=== PATIENT | female | born 2000 | race Caucasian/White ===

== ENCOUNTER 2022-11-01 13:20 | Outpatient (CLI) | payer BC, SELFPAY | END 2022-11-01 13:21 | disposition home or self-care (01) | LOC: ANHGOSHLAB 13:21 | PROVIDERS: PCP Pediatrics; Visit Provider Otolaryngology | DX: E03.9 Hypothyroidism, unspecified (principal) | CPT/HCPCS: 36415; 84443 ==

== ENCOUNTER 2022-12-05 12:56 | Emergency (ER) | payer BC, SELFPAY ==
[2022-12-05 13:05] VITALS: BP 127/98; PULSE 101; RESP 16; TEMP 36.8; O2SAT 99
--- NOTE | 2022-12-05 13:08 | ED.SKABFB ---
HPI - Skin/Abscess/Foreign Bdy General Chief complaint: Wound/Laceration Stated complaint: BURN TO NECK Time Seen by Provider: 12/05/22 13:08 Source: patient and RN notes reviewed History of Present Illness HPI narrative: Patient is a 22-year-old female who presents to urgent care with complaints of a burn to the right side of her neck. Patient states that she burned it with a curling iron last night. Patient has been using [id number] a and D ointment. Patient is requesting a prescription for Silvadene. No other acute complaints. No acute distress noted. Patient aware of the plan of care. Some parts of this dictation were generated by voice recognition software and may contain typographical and/or grammatical inaccuracies. Related Data Allergies Allergy/AdvReac Type Severity Reaction Status Date / Time No Known Allergies Allergy Verified 12/05/22 13:04 Review of Systems Review of Systems: CONSTITUTIONAL: DENIES FEVER, CHILLS, OR SWEATS. EYES: DENIES VISUAL CHANGES, REDNESS, OR DISCHARGE. ENT: DENIES RHINORRHEA, CONGESTION, SORE THROAT, OR OTALGIA. CARDIOVASCULAR: DENIES CHEST PAIN, PALPITATIONS, OR EDEMA. RESPIRATORY: DENIES COUGH OR DYSPNEA. GASTROINTESTINAL: DENIES ABDOMINAL PAIN, NAUSEA, VOMITING, OR DIARRHEA. GENITOURINARY: DENIES DYSURIA OR HEMATURIA. SKIN: Reports of a burn to the right side of her neck MUSCULOSKELETAL: DENIES BACK PAIN, JOINT PAIN, OR MYALGIA. NEUROLOGIC: DENIES HEADACHE, NUMBNESS, OR WEAKNESS. ALL OTHER SYSTEMS REVIEWED ARE NEGATIVE, EXCEPT DOCUMENTED IN HPI. [facility] Past Medical History Medical History Pelvic pain Surgical History Surgical History S/P ACL surgery Family History Family History Grandparent Family history of malignant neoplasm of breast Father Family history of lupus erythematosus Social History Social History (Updated 11/01/22 @ 12:54 by SHELL Duarte) Smoking status: Never smoker Alcohol intake: never Substance use: unknown Lack of Transportation: No Lack of Food: Never True Current Housing: I Have Housing Concerned About Future Housing: No Difficulty Paying Gas/Electric Bills: No Difficulty Paying for Meds: No Currently Unemployed: No Education: Bachelor's Degree Difficulty w/ Childcare or Family Care: No Comments AT THE TIME OF MY SIGNATURE, I REVIEWED AND AGREE WITH THE NURSING PAST MEDICAL, SURGICAL, SOCIAL, AND FAMILY HISTORY. THERE IS NO RELEVANT FAMILY HISTORY PERTINENT TO THE PATIENT COMPLAINT. Exam Narrative: GENERAL: THIS IS A WELL-NOURISHED, WELL-DEVELOPED PATIENT, IN NO APPARENT DISTRESS. HEAD: NORMOCEPHALIC, ATRAUMATIC. EYES: PERRL. SCLERA CLEAR/WHITE. VISION IS GROSSLY INTACT. EARS: EXTERNAL EARS NORMAL NOSE: EXTERNAL NOSE NORMAL WITH NO OBVIOUS NASAL DISCHARGE, NARES WITHOUT REDNESS, NO RHINORRHEA. THROAT: MUCOUS MEMBRANES MOIST, NECK: NECK SUPPLE, SKIN: 4 x 2 1st degree burn without drainage to the right side of the neck NEURO: AWAKE, ALERT, AND ORIENTED TO PERSON, PLACE AND TIME. THERE WERE NO OBVIOUS FOCAL NEUROLOGIC ABNORMALITIES. EXTREMITIES: NO CLUBBING, CYANOSIS, OR EDEMA. Course Course Level of Care: Express Care Visit Vital Signs Vital signs: Vital Signs Temperature 98.2 F 12/05/22 13:05 Pulse Rate 101 H 12/05/22 13:05 Respiratory Rate 16 12/05/22 13:05 Blood Pressure 127/98 H 12/05/22 13:05 Pulse Oximetry 99 12/05/22 13:05 Temperature 98.2 F 12/05/22 13:05 Pulse Rate 101 H 12/05/22 13:05 Respiratory Rate 16 12/05/22 13:05 Blood Pressure 127/98 H 12/05/22 13:05 Pulse Oximetry 99 12/05/22 13:05 REVIEWED- PATIENT IS INFORMED THAT THEY MAY HAVE PRE-HYPERTENSION OR HYPERTENSION BASED ON A BLOOD PRESSURE READING IN THE DEPARTMENT. I RECOMMEND THE PATIENT CALL THE PRIMARY CARE PROVIDE
== END 2022-12-05 13:23 | disposition home or self-care (01) ==
PROVIDERS: Emergency Provider Nurse Practitioner Family
DX: T20.17XA Burn of first degree of neck, initial encounter (principal); X19.XXXA Contact with other heat and hot substances, initial encounter
CPT/HCPCS: 99213; G0463

== ENCOUNTER 2023-01-24 16:48 | Emergency (ER) | payer BC, SELFPAY ==
--- NOTE | 2023-01-24 16:54 | ED.URI ---
HPI - URI/Sore Throat General Chief Complaint: Upper Respiratory Infection Stated Complaint: SORE THROAT/HEADACHE/NAUSEA Time Seen by Provider: 01/24/23 17:05 Source: patient and RN notes reviewed Mode of arrival: ambulatory Limitations: no limitations History of Present Illness HPI Narrative: 22-year-old female presents with concern for sore throat that started a, nasal congestion that started yesterday. She denies fever, aches, chills, sweats. Reports mild cough. She reports taking something for headache. MD elicited complaint: sore throat and nasal congestion Related Data Home Medications Medication Instructions Recorded Confirmed fluticasone propionate 50 50 mcg intranasal DIRECTED 01/24/23 01/24/23 mcg/actuation nasal spray,suspension Allergies Allergy/AdvReac Type Severity Reaction Status Date / Time No Known Allergies Allergy Verified 01/15/23 09:36 Review of Systems Review of Systems: CONSTITUTIONAL: Denies malaise, chills, sweats, or fever. EYES: Denies visual changes, redness, or discharge. ENT: Reports rhinorrhea, congestion, sore throat. Denies sinus pain, otalgia CARDIOVASCULAR: Denies chest pain, palpitations, or edema. RESPIRATORY: Reports mild cough. Denies dyspnea. GASTROINTESTINAL: Denies abdominal pain, vomiting, diarrhea. Reports nausea SKIN: Denies rash or itching. MUSCULOSKELETAL: Denies myalgia. NEUROLOGIC: Reports headache. All systems reviewed & are unremarkable except as noted in HPI and below PMFSH Past Medical History Medical History Anxiety and depression Environmental allergies IBS (irritable bowel syndrome) Migraine Pelvic pain Swelling of right parotid gland (~2013) Surgical History Surgical History History of repair of anterior cruciate ligament of right knee (~2016) History of wisdom tooth extraction (~2018) Family History Family History Grandparent Family history of malignant neoplasm of breast Father Family history of lupus erythematosus Social History Social History Smoking status: Never smoker Alcohol intake: never Substance use: never Substance use type: does not use Lack of Transportation: No Lack of Food: Never True Current Housing: I Have Housing Concerned About Future Housing: No Difficulty Paying Gas/Electric Bills: No Difficulty Paying for Meds: No Currently Unemployed: No Education: Bachelor's Degree Difficulty w/ Childcare or Family Care: No Living arrangements: with family Occupation/Education: occupation Gender identity (if verbalized by the patient): Female Agree to blood products: Yes Comments At time of signature, agree with nursing past medical, surgical, social and family history. There is no relevant family history pertinent to the presenting complaint Exam Narrative: GENERAL: Well-appearing, well-nourished, and in no acute distress. HEAD: Normocephalic EYES: PERRLA, conjunctivae clear ENT: Nares clear, turbinates edematous and erythematous, clear discharge. Mucous membranes moist. TM pearly hammonds with sharp light reflex bilaterally; no tragal tenderness. Oropharynx not erythematous without lesions. Tonsils not enlarged and without exudate, no drooling, no hoarseness, no trismus, uvula midline. NECK: Supple. No lymphadenopathy CHEST: Clear to auscultation, breath sounds equal. No wheezing, rhonchi, rales, or stridor. No respiratory distress, speaks in full sentences. HEART: Regular rate and rhythm. No murmur heard. SKIN: Warm, dry, no rash. NEURO: Alert and oriented x3. PSYCH: Normal mood and affect Course Course Emergency Course: Patient is aware of diagnosis, understands and agrees to treatment plan. Anticipatory guidance given. Patient agrees to follow-
[2023-01-24 17:03] VITALS: BP 128/83; PULSE 97; RESP 16; TEMP 37.1; O2SAT 99
== END 2023-01-24 17:21 | disposition home or self-care (01) ==
PROVIDERS: Emergency Provider Nurse Practitioner; PCP Family Medicine
DX: J06.9 Acute upper respiratory infection, unspecified (principal); F41.9 Anxiety disorder, unspecified; F32.A Depression, unspecified
CPT/HCPCS: 87081; 87880; 99213; G0463

== ENCOUNTER → 2023-02-02 08:44 | Outpatient (CLI) | payer BC, SELFPAY ==
--- NOTE | ~2023-02-02 | CT_ITS ---
EXAMINATION: CT sinus wo con DATE: 02/02/2023 09:05 INDICATION: Chronic sinusitis, unspecified TECHNIQUE: Computed tomography (CT) of the paranasal sinuses was performed without intravenous contra st. The dose-length product (DLP) was 420.49 mGy-cm. Iterative reconstruction was used. COMPARISON: None FINDINGS: There is normal development and pneumatization of the paranasal sinuses. There is mild muco mundo thickening of the frontal sinuses and ethmoidal air cells. There is mucosal thickening of the sph enoid sinuses with a 10 mm polyp or mucous retention cyst of the left sphenoid sinus. There is mild m ucosal thickening of the bilateral maxillary sinuses. There are 6 mm of leftward deviation of the alexandro al septum. The bilateral ostiomeatal complexes are patent. Visualized soft tissues are unremarkable. IMPRESSION: 1. Sinus disease as described above. Reviewed, dictated and finalized at location B.
== END ==
PROVIDERS: PCP Family Medicine; Visit Provider Otolaryngology
DX: J32.9 Chronic sinusitis, unspecified (principal)
CPT/HCPCS: 70486

== ENCOUNTER 2023-04-06 08:00 | Outpatient (CLI) | payer BC, SELFPAY ==
[2023-04-06 12:02] LABS: Basophils Percent Auto 0.4 % (0.2-1.2); Eosinophils Absolute Auto 0.1 K/mm3 (0-0.3); Eosinophils Percent Auto 1.3 % (0-4.4); Hematocrit 37.1 % (37.0-47.0); Hemoglobin 11.9 g/dL (12.0-15.0); Immature Granulocyte Absolute 0.03 K/mm3 (0.00-0.031); Immature Granulocyte Percent A 0.4 % (0-0.5); Lymphocytes Absolute Auto 2.76 K/mm3 (0.9-3.2); Lymphocytes Percent Auto 36.5 % (18.3-44.2); Mean Corpuscular HGB Conc 32.1 g/dl (32-36); Mean Corpuscular Hemoglobin 28.3 pg (26-34); Mean Corpuscular Volume 88.1 fl (80-100); Mean Platelet Volume 10.5 fl (7.4-10.4); Monocytes Absolute Auto 0.7 K/mm3 (0.1-0.6); Monocytes Percent Auto 9.5 % (2.6-8.5); Neutrophils Absolute Auto 3.9 K/mm3 (1.3-6.7); Neutrophils Percent Auto 51.9 % (45.5-73.1); Platelet Count Result 292 k/mm3 (150-375); Red Blood Count 4.21 M/mm3 (4.2-5.4); Red Cell Distribution Width 12.6 % (11.5-14.5); White Blood Count 7.6 K/mm3 (4.5-10.0)
[2023-04-06 12:40] LABS: Albumin Level 4.6 g/dL (3.5-5.1); Carbon Dioxide 22 mmol/L (22-30); Estimated Glomerular Filt Rate > 60
[2023-04-06 12:51] LABS: Erythrocyte Sedimentation Rate 16 mm/hr (0-20)
[2023-04-06 13:31] LABS: Alanine Aminotransferase 21 U/L (6-35); Alkaline Phosphatase 69 U/L (38-126); Anion Gap 10 mmol/L (8-16); Aspartate Amino Transferase 37 U/L (14-36); Bilirubin,Total 0.3 mg/dL (0.2-1.3); Blood Urea Nitrogen 9 mg/dL (7-17); Calcium 9.3 mg/dL (8.4-10.2); Chloride 105 mmol/L (98-107); Glucose 80 mg/dL (65-110); Sodium 137 mmol/L (137-145)
== END 2023-04-06 08:01 | disposition home or self-care (01) ==
LOC: ANHGOSHLAB 08:01
PROVIDERS: PCP Family Medicine; Visit Provider Nurse Practitioner Family
DX: R59.1 Generalized enlarged lymph nodes (principal); Z13.29 Encounter for screening for other suspected endocrine disorder
CPT/HCPCS: 36415; 80053; 84443; 85025; 85652; 86038

== ENCOUNTER 2023-04-10 00:41 | Day surgery (SDC) | payer BC, SELFPAY ==
--- NOTE | 2023-04-02 15:07 | PC.NURSE ---
Report to the Outpatient Waiting Room, entrance under the green pavilion located off [facility], at time _0815_ on date _04/10/23__. Planned Procedure Time: _1015__. Time changes happen often and if your time is changed the preop area will call you the afternoon before. - You and your visitor will be asked to self-screen and do not enter if you have any COVID symptoms. - A mask is optional within the hospital at this time. Patients may have clear liquids (water, carbonated beverages, clear teas, apple juice) until 3 hours prior to surgery with a maximum of 20 ounces. - No food from midnight until time of surgery Take the following medications with a SIP of water the morning of surgery: _none___ DO NOT STOP ANY OF YOUR OTHER PRESCRIPTION MEDICATIONS PRIOR TO SURGERY ?EXCEPT THE FOLLOWING Medications to discontinue per physician ___vitamins or supplements 3 days prior ___ Date to take last dose Please no make-up, nail lithuanian, hairspray, perfume, deodorant, or body powder the day of surgery. No jewelry (including any body piercings) or valuables the day of surgery, leave them at home. Please take a shower or bath the night before, or the morning of, surgery with an antibacterial soap. Wear comfortable, loose fitting clothing. Children are encouraged to wear pajamas. - Jewelry must be removed prior to entering the operating room. Rings and piercings that are not removed may be cut off. - The hospital will not accept responsibility for valuables. - Please leave all valuables, including medications, at home the day of surgery. If you are going home after surgery, a licensed funeral driver must drive you home. - NO public transportation without another adult if you receive anesthesia. - We recommend that an adult stay with you for 24 hours following discharge. - We also recommend that you do not drive, make important decision, drink alcoholic beverages, or take any drugs that were not prescribed by your health care provider for at least 24 hours after your discharge time. For Pediatric surgeries, we recommend two adults accompany the child home. Follow any additional instructions given to you from your surgeon. If you or anyone in your household have experienced Covid symptoms in the past week, please notify your surgeon or the nurse liaison at the phone number below for possible testing. Telephone instructions given to _patient_and asked if any additional questions and then verbalized understanding. Patient advised to call surgeon office or pre surgery nurse liaison [phone] if any additional questions.
[2023-04-02 15:14] VITALS: BMI 25.7
--- NOTE | 2023-04-08 16:38 | PM.IMHP ---
H&P: HPI History of Present Illness Date/Time: 04/08/23 16:38 Chief Complaint: septal deviation turbinate hypertrophy murphy bullosa chronic sinusitis Narrative: planned procedure Review of Systems Review of Systems: All systems reviewed & are unremarkable except as noted in HPI and below PMFSH Past Medical History Medical History Anxiety and depression Environmental allergies IBS (irritable bowel syndrome) Migraine Pelvic pain Swelling of right parotid gland (~2013) Surgical History Surgical History History of repair of anterior cruciate ligament of right knee (~2015) History of wisdom tooth extraction (~2017) Family History Family History Grandparent Family history of malignant neoplasm of breast Father Family history of lupus erythematosus Social History Social History Smoking status: Never smoker Alcohol intake: current Drinks per week: 3 Substance use: never Substance use type: does not use Lack of Transportation: No Lack of Food: Never True Current Housing: I Have Housing Concerned About Future Housing: No Difficulty Paying Gas/Electric Bills: No Difficulty Paying for Meds: No Currently Unemployed: No Education: Bachelor's Degree Difficulty w/ Childcare or Family Care: No Living arrangements: with family Occupation/Education: occupation Gender identity (if verbalized by the patient): Female Spiritual care concerns: No Agree to blood products: Yes Meds Home Medications and Allergies Home Medications Medication Instructions Recorded Confirmed Type sertraline 50 mg tablet (Zoloft) 50 mg PO DAILY #90 tabs 01/15/23 04/06/23 Rx fluticasone propionate 50 50 mcg intranasal DIRECTED 01/24/23 04/06/23 History mcg/actuation nasal spray,suspension prednisone 5 mg tablet 5 mg PO .daily #4 tabs 04/05/23 04/06/23 Rx Allergies Allergy/AdvReac Type Severity Reaction Status Date / Time No Known Allergies Allergy Verified 04/06/23 07:31 Exam Narrative: chronic appearing sinuses septal deviation turbinate hypertrophy fconcha bullosa Assessment and Plan Assessment and plan (1) Recurrent sinusitis: Code(s): J32.9 - Chronic sinusitis, unspecified Status: Acute Assessment and Plan: plan OR image guided endoscopic bilateral maxillary antrostomies total ethmoidectomies sphenoidotomies frontal sinusotomies. Septoplasty endoscopic assisted turbinate reduction bilaterally with outfracture resection of murphy bullosa bilaterally risks were discussed including bleeding infection postoperative bleeding , change in vision total blindness CSF leak brain brain damage need for further procedures septal perforation. Need for time off work need for time off school inherent risk of narcotic use. Patient voiced understanding of these risks and agreed. (2) Chronic sinusitis: Qualifiers: Sinusitis location: unspecified location Qualified Code(s): J32.9 - Chronic sinusitis, unspecified Code(s): J32.9 - Chronic sinusitis, unspecified Status: Acute (3) Nasal septal deviation: Code(s): J34.2 - Deviated nasal septum Status: Acute (4) Hypertrophy of both inferior nasal turbinates: Code(s): J34.3 - Hypertrophy of nasal turbinates Status: Acute (5) Murphy bullosa: Code(s): J34.89 - Other specified disorders of nose and nasal sinuses Status: Acute
[2023-04-10] VITALS (8 sets, daily range): BP systolic 112–138; BP diastolic 75–88; PULSE 71–116; RESP 12–14; TEMP 36.2–37; O2SAT 96–100
--- NOTE | 2023-04-10 07:16 | WPDHPUPDATE1 ---
History and Physical Update Update Date/Time: 04/10/23 07:16 History and Physical has been reviewed, including an updated exam of the patient. There are NO changes in the patient's condition. Risks, benefits, and alternatives have been discussed and questions answered. Patient agrees to proceed with procedure.
--- NOTE | 2023-04-10 07:56 | WPDANESEPPF ---
Anes - Initial Pre Proc Eval Procedure: Operation Date: 04/10/23 10:15 Proposed Procedures p Image Guided Bilateral Inferior Turbinectomy with Outfracture, Bilateral Maxillary Antrostomy without Tissue Removal, Bilateral Total Ethmoidectomy, Bilateral Frontal Sinusotomy, Bilateral Sphenoidotomy, Bilateral Resection Angela Bullosa - Rico Urbano MD s Endoscopic Septoplasty - Rico Urbano MD Date/Time: 04/10/23 07:56 Surgeon: Rico Urbano MD Pre Op Diagnosis: Chr Sinusitis Patient Data Age: 22 Gender: F Height: 1.63 m Weight: 68.04 kg Allergies Allergy/AdvReac Type Severity Reaction Status Date / Time No Known Allergies Allergy Verified 04/10/23 10:17 Home Medications Medication Instructions Recorded Confirmed Type sertraline 50 mg tablet (Zoloft) 50 mg PO DAILY #90 tabs 01/15/23 04/06/23 Rx fluticasone propionate 50 50 mcg intranasal DIRECTED 01/24/23 04/06/23 History mcg/actuation nasal spray,suspension prednisone 5 mg tablet 5 mg PO .daily #4 tabs 04/05/23 04/06/23 Rx doxycycline hyclate 100 mg capsule 100 mg PO DAILY #14 caps 04/10/23 Rx ondansetron 4 mg disintegrating 4 mg PO Q8H #10 tabs 04/10/23 Rx tablet oxycodone 5 mg tablet 5 mg PO Q8H PRN pain #10 tabs 04/10/23 Rx prednisone 5 mg tablet 5 mg PO DAILY #14 tabs 04/10/23 Rx budesonide 0.25 mg/2 mL suspension 0.25 mg (2 mL) irrigation Q12H #60 04/12/23 04/12/23 Rx for nebulization mL Patient hx anesthesia problems: none Family hx anesthesia problems: none Results Review: All pre-operative results and documents have been reviewed as part of the pre-operative evaluation. [facility] Past Medical History Medical History Anxiety and depression Environmental allergies IBS (irritable bowel syndrome) Migraine Pelvic pain Swelling of right parotid gland (~2013) Surgical History Surgical History History of repair of anterior cruciate ligament of right knee (~2016) History of wisdom tooth extraction (~2018) Family History Family History Grandparent Family history of malignant neoplasm of breast Father Family history of lupus erythematosus Social History Social History Smoking status: Never smoker Alcohol intake: current Drinks per week: 3 Substance use: never Substance use type: does not use Lack of Transportation: No Lack of Food: Never True Current Housing: I Have Housing Concerned About Future Housing: No Difficulty Paying Gas/Electric Bills: No Difficulty Paying for Meds: No Currently Unemployed: No Education: Bachelor's Degree Difficulty w/ Childcare or Family Care: No Living arrangements: with family Occupation/Education: occupation Gender identity (if verbalized by the patient): Female Spiritual care concerns: No Agree to blood products: Yes Anes - Eval Final PreProcedure Day of Procedure 04/10/23 07:56 Patient weight: overweight Heart: regular rate and rhythm Lungs: clear to auscultation Airway: Mallampati scale class II Neurological: alert and oriented Last oral intake: >/= 8 hours ASA classification: II Emergent: no Anesthetic plan: proceed Anesthesia type and monitoring: general ETT and standard monitoring Results Review: All pre-operative results and documents have been reviewed as part of the pre-operative evaluation. Informed Consent: The patient's anesthetic plan and its attendant risks and benefits were discussed with the patient/family/POA. Questions were solicited and answers provided to the satisfaction of the patient/family/POA.
[2023-04-10] MEDS: LACTATED RINGERS 1,000 ML 30 ML IV CONT ×3 (09:30→16:44)
[2023-04-10] MEDS: ACETAMINOPHEN 500 MG TABLET 1000 MG PO (09:30)
[2023-04-10] MEDS: ceFAZolin 2 GM/D5W 50 ML 2 GM/50 ML BAG IVPB (10:49)
[2023-04-10] MEDS: LIDO 1%/EPINEPHRINE 1:100,000 20 ML VIAL 5 ML INFILTRATE (11:32)
[2023-04-10] MEDS: OXYMETAZOLINE HCL 0.05% NAS 15 ML BTL (*BKC) 1 SPRAY NASAL (11:34)
[2023-04-10] MEDS: MUPIROCIN 2% OINT 22 GM TUBE 1 APPLIC EACH NARE (14:54)
[2023-04-10] MEDS: ONDANSETRON INJ 4 MG/2 ML VIAL IV PUSH (15:35)
[2023-04-10] MEDS: diphenhydrAMINE HCl INJ 50 MG/ML VIAL 6.25 MG IV PUSH ×2 (15:51→16:03)
[2023-04-10] MEDS: SCOPOLAMINE 1.5 MG PATCH TRANSDERM (15:52)
--- NOTE | 2023-04-10 15:52 | P.OP_ITS ---
Procedure Note - Detailed Date of Procedure 04/10/23 Pre-op Diagnosis Chr Sinusitis, septal deviation, turbinate hypertrophy, nasal obstruction Post-op Diagnosis Same Procedure Performed Endoscopic assisted septoplasty bilateral inferior turbinate reduction with outfracture bilateral resection of murphy bilateral middle turbinectomies image guided endoscopic bilateral maxillary antrostomies total ethmoidectomies frontal sinusotomies sphenoidotomies Surgeon Rico Urbano MD Anesthesia General Indications See above Findings Severely diseased murphy the right was completely osteotomy and scarred over to the right had removed the turbinate in order to drill up to the frontal the left appeared at almost nonvascular was filled with purulence. Otherwise disease tissue in all the aforementioned sinuses corresponding to the CT scan. Septal deviation up high bilaterally necessitating septoplasty large turbinates as well as specially the right. Description of Procedure Patient identified consent verified. Patient brought to the operating room. Time-out performed. General anesthesia induced endotracheal tube secured. Patient prepped draped position. Image guidance initiated confirmed. Procedure confirmed. A 2nd time-out performed. Afrin-soaked pledgets placed for 5 minutes then removed. 0 degree endoscope utilized. 10 cc 1% lidocaine 1 100,000 parts epinephrine injected to the inferior turbinates septum and murphy. Pj incision made left-sided left nasal septal flap elevated 7 Frisian suction osteotome utilized to outline septum crossover. Right nasal septal flap elevated. Deviated septum removed Kenny forceps Brian [place] forceps and osteotome. [place] incision closed 3 interrupted 5 0 fast gut sutures. Was also quilted over the swell body. Turbinates reduced submucosal plane using microdebrider with turbinate blade and outfractured. The entrance point was cauterized with Bovie suction electrocautery setting of 10. [place] tips also cauterized. Maxillary antrostomies. All the sinus surgeries performed under image guidance. Maxillary antrostomy form double book ball-tip probe backbiter microdebrider down-biting stump rigors straight through cut. Total ethmoids performed with [place] and microdebrider as well as straight through cut. Frontal sinusotomies performed with high-speed 70 degree drill rad 60 microdebrider frontal image guided instruments he Grant and draft instruments. Propel stents were placed bilaterally. Sphenoidotomy performed with image guidance Mobile 1 Kerrison 3 Kerrison and sphenoid punch. Then the procedure the sinuses were copiously irrigated. Again the septum was quilted over the swell bodies. No pack was placed bilaterally. Basilio splints placed sutured anteriorly using through mattress nylon suture. I performed all dictated portions of procedure. No complications. Total blood loss about 125 cc. Patient tolerated the procedure well. Her vision was intact following surgery. Nor bit no injury to orbit skull base no septal perforations no concomitant perforations no known complications. Estimated Blood Loss -125.0 Drains No Packing Yes (Novapak) Pathology None sent Complications No immediate complications Condition Stable Disposition PACU [facility] Billing Surgery - Charge Forward: Surgery Billing
[2023-04-10] MEDS: fentaNYL CITRATE INJ (*CRX) 100 MCG/2 ML VIAL 25 MCG IV PUSH ×2 (16:35→16:40)
[2023-04-10] MEDS: diphenhydrAMINE HCl INJ 50 MG/ML VIAL 12.5 MG IV PUSH (16:37)
== END 2023-04-10 17:25 | disposition home or self-care (01) ==
PROVIDERS: PCP Family Medicine; Visit Provider Otolaryngology
PROC: (CPT 31256; principal; 2023-04-10 10:15)
PROC: (CPT 30520; 2023-04-10 10:15)
DX: J32.9 Chronic sinusitis, unspecified (principal); J34.3 Hypertrophy of nasal turbinates; J34.2 Deviated nasal septum; J34.89 Other specified disorders of nose and nasal sinuses; F41.8 Other specified anxiety disorders
CPT/HCPCS: 31256; 31253; 31287; 31240; 30520; 30140; 61782; A9270; C2625; J0690; J1100; J1170; J1200; J2250; J2405; J2704; J3010; J7120

== ENCOUNTER 2023-04-18 08:26 | Day surgery (SDC) | payer BC, SELFPAY ==
[2023-04-18] VITALS (9 sets, daily range): BP systolic 115–131; BP diastolic 66–86; PULSE 77–108; RESP 10–18; TEMP 36.3–36.9; O2SAT 99–100
--- NOTE | 2023-04-18 08:38 | ED.EPISTAXIS ---
HPI - Epistaxis General Chief complaint: Epistaxis Stated complaint: epitaxsis Time Seen by Provider: 04/18/23 08:34 History of Present Illness HPI Narrative: 22-year-old female presented the ED for evaluation of epistaxis. Patient reports she had recent nasal surgery on Sunday and prior to arrival she sneezed and had bleeding from bilateral nares. Patient was also having posterior bleeding during this. Patient did call her ENT and Dr. Urbano call the emergency department prior to patient arrival. Upon arrival to the ED bleeding had stopped. Patient did have a towel from home but did have approximately 5 cc of clot. Father states that he felt that there had been approximately half a cup of blood loss at home. Upon arrival to the ED patient denies any difficulty breathing and is well-appearing. Related Data Allergies Allergy/AdvReac Type Severity Reaction Status Date / Time No Known Allergies Allergy Verified 04/18/23 08:31 Review of Systems Review of Systems: All systems reviewed & are unremarkable except as noted in HPI and below PMFSH Past Medical History Medical History Anxiety and depression Environmental allergies IBS (irritable bowel syndrome) Migraine Pelvic pain Swelling of right parotid gland (~2013) Surgical History Surgical History H/O sinus surgery History of repair of anterior cruciate ligament of right knee (~2015) History of wisdom tooth extraction (~2017) Family History Family History Grandparent Family history of malignant neoplasm of breast Father Family history of lupus erythematosus Social History Social History Smoking status: Never smoker Alcohol intake: current Drinks per week: 3 Substance use: never Substance use type: does not use Lack of Transportation: No Lack of Food: Never True Current Housing: I Have Housing Concerned About Future Housing: No Difficulty Paying Gas/Electric Bills: No Difficulty Paying for Meds: No Currently Unemployed: No Education: Bachelor's Degree Difficulty w/ Childcare or Family Care: No Living arrangements: with family Occupation/Education: occupation Gender identity (if verbalized by the patient): Female Spiritual care concerns: No Agree to blood products: Yes Exam Narrative: APPEARANCE: Well appearing, no pain, no distress, well-nourished. HEAD: normocephalic, atraumatic. EYES: PERRLA/EOMI, conjunctivae clear. NOSE: No active bleeding but does have clot in the right naris. EARS:TMS clear with good light reflex. THROAT: Pharynx clear, no exudate. No recurrent posterior bleeding NECK: Supple. No adenopathy, no masses. RESPIRATORY: Airway patent, respirations nonlabored. Clear to auscultation bilaterally, no rales, rhonchi, wheezing. CARDIOVASCULAR: Regular rate and rhythm without murmurs rubs or gallops. ABDOMINAL: Soft, nontender, nondistended, normal bowel sounds MUSCULOSKELETAL: Moves all extremities. Strength/ROM intact, No edema, No calf tenderness. NEURO: Alert. Cranial nerves II through XII intact. SKIN: Warm, dry. Normal Color Course Course Emergency Course: 22-year-old female presented ED for evaluation of epistaxis after sneezing after recent nasal surgery. Dr. Urbano was notified that the patient is in the emergency department and he is coming to see the patient. Patient and family were updated on the results of my exam and pending arrival of ENT. Vital Signs Vital signs: Vital Signs Temperature 97.5 F L 04/18/23 08:29 Pulse Rate 108 H 04/18/23 08:29 Respiratory Rate 18 04/18/23 08:29 Blood Pressure 131/86 04/18/23 08:29 Pulse Oximetry 100 04/18/23 08:29 Oxygen Delivery Room Air 04/18/23 08:29 Temperature 97.3 F L 04/18/23 11:10 Pul
--- NOTE | 2023-04-18 08:55 | PC.NURSE ---
Dr. Urbano in to see pt.
--- NOTE | 2023-04-18 09:47 | WPDCN ---
Assessment and Plan Assessment and plan (1) Postsurgical epistaxis: Code(s): R04.0 - Epistaxis; Z98.890 - Other specified postprocedural states Status: Acute Assessment and Plan: Plan OR for nasal endoscopy bilaterally control of epistaxis with cautery bilaterally. Plans to burn the 4 arterial sites involved with the surgery posteriorly and see there is any active bleeding from anywhere else. Patient voiced understanding and agreed risks were discussed including further bleeding needing further ER visits if this bleeding site is not cauterized or. Damage to any structure of the clavicles by myself CSF leak brain brain damage change in vision total blindness as well as damage to any structure in the induction and maintenance of anesthesia including vocal cord paralysis. HPI Data of Consult Date/Time: 04/18/23 09:47 Requesting Physician: Rico Urbano MD Primary Care Provider: Eusebio Whitt MD Consult Narrative Narrative: Ulysses Moncada is a 22 year old female 8 days out from full house Fess reports brisk bleeding several 100 cc and then stopping. Presents to ER. Review of Systems Review of Systems: All systems reviewed & are unremarkable except as noted in HPI and below PMFSH Past Medical History Medical History (Updated 04/18/23 @ 09:48 by Rico Urbano MD) Anxiety and depression Environmental allergies IBS (irritable bowel syndrome) Migraine Pelvic pain Swelling of right parotid gland (~2013) Surgical History Surgical History H/O sinus surgery History of repair of anterior cruciate ligament of right knee (~2015) History of wisdom tooth extraction (~2017) Family History Family History Grandparent Family history of malignant neoplasm of breast Father Family history of lupus erythematosus Social History Social History Smoking status: Never smoker Alcohol intake: current Drinks per week: 3 Substance use: never Substance use type: does not use Lack of Transportation: No Lack of Food: Never True Current Housing: I Have Housing Concerned About Future Housing: No Difficulty Paying Gas/Electric Bills: No Difficulty Paying for Meds: No Currently Unemployed: No Education: Bachelor's Degree Difficulty w/ Childcare or Family Care: No Living arrangements: with family Occupation/Education: occupation Gender identity (if verbalized by the patient): Female Spiritual care concerns: No Agree to blood products: Yes Meds Home Medications and Allergies Home Medications Medication Instructions Recorded Confirmed Type sertraline 50 mg tablet (Zoloft) 50 mg PO DAILY #90 tabs 01/15/23 04/16/23 Rx doxycycline hyclate 100 mg capsule 100 mg PO DAILY #14 caps 04/10/23 04/16/23 Rx prednisone 5 mg tablet 5 mg PO DAILY #14 tabs 04/10/23 04/16/23 Rx budesonide 0.25 mg/2 mL suspension 0.25 mg (2 mL) irrigation Q12H #60 04/12/23 04/16/23 Rx for nebulization mL Allergies Allergy/AdvReac Type Severity Reaction Status Date / Time No Known Allergies Allergy Verified 04/18/23 08:31 Vital Signs Vital Signs - 24 hr 04/18/23 08:29 04/18/23 09:15 Temperature 36.4 C L Pulse Rate 108 H 89 Respiratory Rate 18 18 Blood Pressure 131/86 115/79 Pulse Oximetry 100 100 Oxygen Delivery Room Air Exam Narrative: Nose clamp removed see procedure for in-depth sinonasal exam mouth no active bleeding down the back
--- NOTE | 2023-04-18 09:49 | P.PCNBED_ITS ---
Procedures Other Procedures Procedure 1: Other Procedure: Procedure be nasal endoscopy with debridement. All the consents obtained. Afrin mixed with lidocaine applied to the bilateral nasal passages clot removed from the bilateral nasal passages the left was more bright red. No active bleed ing noted patient tolerated the procedure very well.
--- NOTE | 2023-04-18 09:50 | PM.IMHP ---
H&P: HPI History of Present Illness Date/Time: 04/18/23 09:50 Chief Complaint: Postsurgical epistaxis Narrative: Urgent procedure Review of Systems Review of Systems: All systems reviewed & are unremarkable except as noted in HPI and below [facility] Past Medical History Medical History (Updated 04/18/23 @ 09:48 by Rico Urbano MD) Anxiety and depression Environmental allergies IBS (irritable bowel syndrome) Migraine Pelvic pain Swelling of right parotid gland (~2013) Surgical History Surgical History H/O sinus surgery History of repair of anterior cruciate ligament of right knee (~2015) History of wisdom tooth extraction (~2017) Family History Family History Grandparent Family history of malignant neoplasm of breast Father Family history of lupus erythematosus Social History Social History Smoking status: Never smoker Alcohol intake: current Drinks per week: 3 Substance use: never Substance use type: does not use Lack of Transportation: No Lack of Food: Never True Current Housing: I Have Housing Concerned About Future Housing: No Difficulty Paying Gas/Electric Bills: No Difficulty Paying for Meds: No Currently Unemployed: No Education: Bachelor's Degree Difficulty w/ Childcare or Family Care: No Living arrangements: with family Occupation/Education: occupation Gender identity (if verbalized by the patient): Female Spiritual care concerns: No Agree to blood products: Yes Meds Home Medications and Allergies Home Medications Medication Instructions Recorded Confirmed Type sertraline 50 mg tablet (Zoloft) 50 mg PO DAILY #90 tabs 01/15/23 04/16/23 Rx doxycycline hyclate 100 mg capsule 100 mg PO DAILY #14 caps 04/10/23 04/16/23 Rx prednisone 5 mg tablet 5 mg PO DAILY #14 tabs 04/10/23 04/16/23 Rx budesonide 0.25 mg/2 mL suspension 0.25 mg (2 mL) irrigation Q12H #60 04/12/23 04/16/23 Rx for nebulization mL Allergies Allergy/AdvReac Type Severity Reaction Status Date / Time No Known Allergies Allergy Verified 09/13/23 08:31 Vital Signs Vital Signs - 24 hr 04/18/23 08:29 04/18/23 09:15 Temperature 36.4 C L Pulse Rate 108 H 89 Respiratory Rate 18 18 Blood Pressure 131/86 115/79 Pulse Oximetry 100 100 Oxygen Delivery Room Air Exam Narrative: Losing bilaterally no active bleed Assessment and Plan Assessment and plan (1) Postsurgical epistaxis: Code(s): R04.0 - Epistaxis; Z98.890 - Other specified postprocedural states Status: Acute Assessment and Plan: Plan OR for nasal endoscopy bilaterally control of epistaxis with cautery bilaterally. Plans to burn the 4 arterial sites involved with the surgery posteriorly and see there is any active bleeding from anywhere else. Patient voiced understanding and agreed risks were discussed including further bleeding needing further ER visits if this bleeding site is not cauterized or. Damage to any structure of the clavicles by myself CSF leak brain brain damage change in vision total blindness as well as damage to any structure in the induction and maintenance of anesthesia including vocal cord paralysis.
--- NOTE | 2023-04-18 09:51 | WPDHPUPDATE1 ---
History and Physical Update Update Date/Time: 04/18/23 09:51 History and Physical has been reviewed, including an updated exam of the patient. There are NO changes in the patient's condition. Risks, benefits, and alternatives have been discussed and questions answered. Patient agrees to proceed with procedure.
--- NOTE | 2023-04-18 09:54 | WPDANESEPPF ---
Anes - Initial Pre Proc Eval Procedure: Operation Date: 04/18/23 10:00 Proposed Procedures p Nasal Endoscopy, Control of Epistaxis - Rico Urbano MD Date/Time: 04/18/23 09:54 Surgeon: Rico Urbano MD Pre Op Diagnosis: epitaxsis Patient Data Age: 22 Gender: F Height: 1.63 m Weight: 72.5 kg Last Vital Signs Temp 36.4 C L 04/18/23 08:29 Pulse 89 04/18/23 09:15 Resp 18 04/18/23 09:15 BP 115/79 04/18/23 09:15 Pulse Ox 100 04/18/23 09:15 O2 Del Method Room Air 04/18/23 08:29 Allergies Allergy/AdvReac Type Severity Reaction Status Date / Time No Known Allergies Allergy Verified 04/18/23 08:31 Home Medications Medication Instructions Recorded Confirmed Type sertraline 50 mg tablet (Zoloft) 50 mg PO DAILY #90 tabs 01/15/23 04/16/23 Rx doxycycline hyclate 100 mg capsule 100 mg PO DAILY #14 caps 04/10/23 04/16/23 Rx prednisone 5 mg tablet 5 mg PO DAILY #14 tabs 04/10/23 04/16/23 Rx budesonide 0.25 mg/2 mL suspension 0.25 mg (2 mL) irrigation Q12H #60 04/12/23 04/16/23 Rx for nebulization mL Patient hx anesthesia problems: post op nausea/vomiting Family hx anesthesia problems: none Results Review: All pre-operative results and documents have been reviewed as part of the pre-operative evaluation. [facility] Past Medical History Medical History Anxiety and depression Environmental allergies IBS (irritable bowel syndrome) Migraine Pelvic pain Swelling of right parotid gland (~2013) Surgical History Surgical History H/O sinus surgery History of repair of anterior cruciate ligament of right knee (~2015) History of wisdom tooth extraction (~2017) Family History Family History Grandparent Family history of malignant neoplasm of breast Father Family history of lupus erythematosus Social History Social History Smoking status: Never smoker Alcohol intake: current Drinks per week: 3 Substance use: never Substance use type: does not use Lack of Transportation: No Lack of Food: Never True Current Housing: I Have Housing Concerned About Future Housing: No Difficulty Paying Gas/Electric Bills: No Difficulty Paying for Meds: No Currently Unemployed: No Education: Bachelor's Degree Difficulty w/ Childcare or Family Care: No Living arrangements: with family Occupation/Education: occupation Gender identity (if verbalized by the patient): Female Spiritual care concerns: No Agree to blood products: Yes Anes - Eval Final PreProcedure Day of Procedure 04/18/23 09:54 Patient weight: normal Heart: regular rate and rhythm Lungs: clear to auscultation Airway: Mallampati scale class II Neurological: alert and oriented Last oral intake: >/= 8 hours ASA classification: II Emergent: no Anesthetic plan: proceed Anesthesia type and monitoring: general ETT and standard monitoring Results Review: All pre-operative results and documents have been reviewed as part of the pre-operative evaluation. Informed Consent: The patient's anesthetic plan and its attendant risks and benefits were discussed with the patient/family/POA. Questions were solicited and answers provided to the satisfaction of the patient/family/POA.
[2023-04-18] MEDS: LACTATED RINGERS 1,000 ML 30 ML IV CONT (10:01)
[2023-04-18] MEDS: SCOPOLAMINE 1.5 MG PATCH TRANSDERM (10:02)
[2023-04-18] MEDS: OXYMETAZOLINE HCL 0.05% NAS 15 ML BTL (*BKC) 1 SPRAY NASAL (10:17)
--- NOTE | 2023-04-18 12:11 | W.PM.PROC2 ---
Procedure Note - Detailed Date of Procedure 04/18/23 Pre-op Diagnosis epitaxsis postoperative Post-op Diagnosis Same Procedure Performed bilateral nasal endoscopy bilateral bilateral controlled epistaxis Surgeon Rico Urbano MD Anesthesia General Indications see above Findings healing well everything looks okay the bleeding vessels right posterior septal artery cauterized no further bleeding Description of Procedure patient identified consent verified preop. Patient brought to the operating room. Time-out performed. General anesthesia induced endotracheal tube secured. The patient prepped draped positioned procedure confirmed 2nd time-out performed. Endoscope utilized sinus was washed out no active bleeding the stumps from the left middle turbinate and posterior septal artery were again cauterized right side examined middle turbinate stump cauterized with a right nasal septal artery region was examined it bled profusely. This was completely cauterized with Bovie suction electrocautery setting of 15 and 20. Bleeding was controlled again the sinuses were washed out patient was completely suctioned out tolerated the procedure well blood loss 10 cc. I performed all dictated portions of procedure no complications. Patient taken to PACU. Estimated Blood Loss 10 Drains No Packing No Pathology None sent Complications No immediate complications Condition Stable Disposition PACU [facility] Billing Surgery - Charge Forward: Surgery Billing
== END 2023-04-18 12:40 | disposition home or self-care (01) ==
LOC: ANHED 09:27 → ANHSURGERY 09:31
PROVIDERS: Emergency Provider Emergency Medicine; PCP Family Medicine; Visit Provider Otolaryngology
PROC: (CPT 31238; principal; 2023-04-18 10:00)
DX: J95.830 Postprocedural hemorrhage of a respiratory system organ or structure following a respiratory system procedure (principal); Y83.8 Other surgical procedures as the cause of abnormal reaction of the patient, or of later complication, without mention of misadventure at the time of the procedure; F41.8 Other specified anxiety disorders; Z79.51 Long term (current) use of inhaled steroids
CPT/HCPCS: 31238; 96360; 99285; A9270; J0330; J1100; J2250; J2405; J2704; J3010; J7120

== ENCOUNTER → 2023-05-14 15:29 | Outpatient (CLI) | payer BC, SELFPAY ==
--- NOTE | ~2023-05-14 | US_ITS ---
US axilla RT DATE: 05/14/2023 15:40 INDICATION: Palpable area and right axilla for 10 years TECHNIQUE: Real-time and color flow imaging of right axillary soft tissues COMPARISON: None FINDINGS: There is a benign appearing lymph node measuring approximately 5.5 x 10 mm, with relatively uniform thin cortex, prominent fatty hilum. There is an oval approximately 5 x 10 mm solid lesion with areas of central fat echogenicity and vess els at the hilum, uniform echogenicity of the cortex, also likely a lymph node. There is no suspiciou s shadowing. IMPRESSION: Probable benign right axillary lymph nodes; consider 6 month axillary ultrasound follow-u p as clinically appropriate BI-RADS Category 3: Probably benign Reviewed, dictated and finalized at [facility]. Reviewed, dictated and finalized at [facility]. IMPRESSION: Probable benign right axillary lymph nodes; consider 6 month axilla ry ultrasound follow-up as clinically appropriate BI-RADS Category 3: Probably benign
== END ==
PROVIDERS: PCP Family Medicine; Visit Provider Nurse Practitioner Family
DX: R59.1 Generalized enlarged lymph nodes (principal)
CPT/HCPCS: 76882

== ENCOUNTER 2023-08-13 15:45 | Outpatient (CLI) | payer OTHER, SELFPAY ==
[2023-08-13 16:13] LABS: Basophils Percent Auto 0.5 % (0.2-1.2); Eosinophils Absolute Auto 0.1 K/mm3 (0-0.3); Eosinophils Percent Auto 1.2 % (0-4.4); Hemoglobin 11.9 g/dL (12.0-15.0); Immature Granulocyte Absolute 0.03 K/mm3 (0.00-0.031); Immature Granulocyte Percent A 0.4 % (0-0.5); Lymphocytes Absolute Auto 3.68 K/mm3 (0.9-3.2); Lymphocytes Percent Auto 47.2 % (18.3-44.2); Mean Corpuscular HGB Conc 32.2 g/dl (32-36); Mean Corpuscular Hemoglobin 27.9 pg (26-34); Mean Corpuscular Volume 86.9 fl (80-100); Mean Platelet Volume 9.7 fl (7.4-10.4); Monocytes Absolute Auto 0.5 K/mm3 (0.1-0.6); Monocytes Percent Auto 6.7 % (2.6-8.5); Neutrophils Absolute Auto 3.4 K/mm3 (1.3-6.7); Platelet Count Result 265 k/mm3 (150-375); Red Blood Count 4.26 M/mm3 (4.2-5.4); Red Cell Distribution Width 12.6 % (11.5-14.5); White Blood Count 7.8 K/mm3 (4.5-10.0)
[2023-08-13 17:00] LABS: Alanine Aminotransferase 18 U/L (6-35); Albumin Level 4.4 g/dL (3.5-5.1); Alkaline Phosphatase 70 U/L (38-126); Anion Gap 13 mmol/L (8-16); Aspartate Amino Transferase 23 U/L (14-36); Bilirubin,Total 0.3 mg/dL (0.2-1.3); Blood Urea Nitrogen 11 mg/dL (7-17); Calcium 9.8 mg/dL (8.4-10.2); Carbon Dioxide 22 mmol/L (22-30); Chloride 104 mmol/L (98-107); Estimated Glomerular Filt Rate > 60; Glucose 101 mg/dL (65-110); Lactate Dehydrogenase 171 U/L (120-246); Potassium 4.4 mmol/L (3.4-5.0); Sodium 139 mmol/L (137-145)
[2023-08-16 18:39] LABS: EBV Nuclear Ab Antibody <18.00 U/mL (<18.00); EBV Nuclear Ab Interpretation Recent; EBV Virus Capsid Ag IgM Ab <36.00 U/mL (<36.00)
== END 2023-08-13 15:46 | disposition home or self-care (01) ==
LOC: ANHLAB 15:47
PROVIDERS: PCP Family Medicine; Visit Provider Internal Medicine Hematology & Oncology
DX: R59.1 Generalized enlarged lymph nodes (principal)
CPT/HCPCS: 36415; 80053; 83615; 85025; 86664; 86665

== ENCOUNTER 2025-01-02 12:35 | Outpatient (CLI) | payer OTHER, SELFPAY ==
--- NOTE | ~2025-01-02 | US_ITS ---
EXAM: Focused ultrasound examination of the soft tissues of the right axilla HISTORY: M79.89 - Other specified soft tissue disorders 24-year-old woman with a palpable abnormality within the right axilla presents for diagnostic ultraso und. TECHNIQUE: Sonographic evaluation of the soft tissues of the right axilla were performed assessing gr ayscale appearance and color Doppler flow. COMPARISON: 05/14/2023. FINDINGS: Within the area of palpable concern is a reniform shaped focus of decreased echogenicity measuring 4. 2 x 10.3 x 2.1 cm, consistent with a morphologically benign lymph node. The short axis dimension of this lymph node is 10.3 mm, not pathologically enlarged. Sonographic evaluation of the remainder of the soft tissues of the right axilla demonstrate benign fi brofatty and fibromuscular elements without a cystic or solid lesion of concern. IMPRESSION: Morphologically benign nonpathologically enlarged lymph node within the right axilla, corresponding t o the area of palpable concern for which no further follow-up is needed. BI-RADS Category 2: Benign findings. Follow-up as per ACR/ACS/SBI guidelines is suggested. Reviewed, dictated and finalized at location [facility]. IMPRESSION: Morphologically benign nonpathologically enlarged lymph node within the right a xilla, corresponding to the area of palpable concern for which no further follo w-up is needed. BI-RADS Category 2: Benign findings. Follow-up as per ACR/ACS/SBI guidelines is suggested.
== END 2025-01-02 12:36 | disposition home or self-care (01) ==
PROVIDERS: PCP Nurse Practitioner Obstetrics & Gynecology; Visit Provider Nurse Practitioner Obstetrics & Gynecology
DX: M79.89 Other specified soft tissue disorders (principal)
CPT/HCPCS: 76882

== ENCOUNTER 2025-04-29 12:47 | Outpatient (CLI) | payer OTHER, SELFPAY ==
--- NOTE | ~2025-04-29 | US_ITS ---
US axilla RT Indication: R59.0 - Localized enlarged lymph nodes Comparison: None Technique: Hernandez-scale and color Doppler images were obtained. Findings: Correlating with the palpable area there are lymph nodes identified the largest of the axilla measuring 3 x 1 cm with normal flow and a normal- appearing hilum. IMPRESSION: Nonspecific mild lymphadenopathy. Reactive etiologies favored. Follow-up recommended to assess stability or resolution Reviewed, dictated and finalized at location A. IMPRESSION: Nonspecific mild lymphadenopathy. Reactive etiologies favored. Foll ow-up recommended to assess stability or resolution
--- NOTE | ~2025-04-29 | US_ITS ---
EXAMINATION: US soft tissue head and neck COMPARISON: No comparisons available. HISTORY: I88.9 - Nonspecific lymphadenitis, unspecified COMPARISON: No comparisons available. Technique: Hernandez-scale and color Doppler images were obtained. Findings: Correlating with the palpable areas there are prominent lymph nodes identified the largest in the anterior right neck 1.5 x 0.9 cm and the largest inferior to the right ear 0.9 x 0.8 cm with a third lymph node in the right posterior neck 1.1 x 0.9 cm. These lymph nodes demonstrate normal-appearing hilar without abnormal flow. IMPRESSION: 1. Nonspecific mild lymphadenopathy probably reactive. Follow-up suggested to assess resolution Reviewed, dictated and finalized at location A. IMPRESSION: 1. Nonspecific mild lymphadenopathy probably reactive. [facility]
--- OUTSIDE RECORDS SUMMARY | 2025-04-29 12:54 | XMS_ITS | Clinical Summary ---
Author Organization [facility] Address Formerly [facility] [place] [address] Care Team Providers Care Mobility Manager Name Role Phone Nataliia Whitman MD Primary Care Provider [phone] Allergies No known active allergies Medications spironolactone 50 MG tablet Take 150 mg by mouth daily. 09/22/2021 Active sertraline 50 MG tablet Take 50 mg by mouth daily. 09/23/2021 Active LO LOESTRIN FE 1 MG-10 MCG / 10 MCG Tab Take 1 tablet by mouth daily. 09/23/2021 Active butalbital-aceta minophen-caffein e 50-325-40 MG tablet Take 1 tablet by mouth every 6 (six) hours as needed for Headaches. 21 tablet 10/11/2021 Active Family History Medical History Relation Comments Lupus Father No Known Problems Mother Relation Status Comments Father Mother Social History Tobacco Use Types Packs/Day Years Used Date Smoking Tobacco: Never Smokeless Tobacco: Never Alcohol Use Standard Drinks/Week Comments Never 0 (1 standard drink = 0.6 oz pur e alcohol) AUDIT-C Answer Date Recorded Frequency of Alcohol Consumption Never 03/07/2020 Average Number of Drinks Not on file 020 Frequency of Binge Drinking Not on file 09/2019 Comments Unknown Sex and Gender Information Value Date Recorded Sex Assigned at Not on file Legal Sex Female 8:04 AM CDT Gender Identity Not on file Sexual Orientation Not on file Last Filed Vital Signs Vital Sign Reading Time Taken Comments Blood Pressure 101/64 10/11/2021 11:00 PM MANDARIN TUTOR Pulse 78 10/11/2021 11:00 PM MANDARIN TUTOR Temperature 36.3 C (97.3 F) 10/11/2021 7:13 PM MANDARIN TUTOR Respiratory Rate 18 10/11/2021 11:00 PM MANDARIN TUTOR Oxygen Saturation 97% 10/11/2021 11:00 PM MANDARIN TUTOR Inhaled Oxygen Concentration - - Weight 59 kg (130 lb) 10/11/2021 7:13 PM MANDARIN TUTOR Height 162.6 cm (5' 4) 10/11/2021 7:13 PM MANDARIN TUTOR Body Mass Index 22.31 10/11/2021 7:13 PM MANDARIN TUTOR Plan of Treatment Health Maintenance Due Date Last Done Comments Cervical Cancer Screening Pa p Smear (Age 21 to 29) Every 3 Years 2000 Cervical Cancer Screening 2000 Annual Physical 2003 HPV Vaccines (2 - 3-dose series) 07/13/2016 06/15/20 16 Hepatitis C 2018 DTaP, Tdap and Td Vaccines ( 1 - Tdap) 2019 Hepatitis B Vaccines (1 of 3 - 19+ 3-dose series) 2019 COVID-19 Vaccine ( - 2023-2 5 season) 2025 Meningococcal B Vaccine Aged Out No l onger eligible based on patient's age to complete this topic Meningococcal Vaccine Aged Out No dereck isabel eligible based on patient's age to complete this topic Pneumococcal Vaccine: Pediat rics (0 to 5 Years) and At-Risk Patients (6 to 49 Years) Aged Out No longer eligi ble based on patient's age to complete this topic RSV Immunizations Under 20 Months Aged Out No longer eligible based on patient's age to complete this topic Insurance [facility] Care Teams Mobility Manager Relationship Specialty Start Date End Date Nataliia Whitman MD [address] [place], [place] [id number] PCP - General PEDIATRICS 10/11/21
--- OUTSIDE RECORDS SUMMARY | 2025-04-29 12:54 | XMS_ITS | Clinical Summary ---
Author Organization [facility] Ja Velásquez Address [address] [place] [address] Care Team Providers Care Reptile Keeper Name Role Phone Eusebio Whitt MD Primary Care Provider Medications drospirenone, contraceptive, (Slynd) 4 mg (28) Tablet 07/08/2023 Active Active Problems No known active problems Family History Relation Name Status Comments Brother Alive Father Alive Mother Alive Sister Alive Social History Tobacco Use Types Packs/Day Years Used Date Smoking Tobacco: Never Smokeless Tobacco: Never Tobacco Cessation:Counseling Given: Not Answered Alcohol Use Standard Drinks/Week Comments Yes 0 (1 standard drink = 0.6 oz pur e alcohol) Comments Unknown Sex and Gender Information Value Date Recorded Sex Assigned at Not on file Legal Sex Female 11:05 AM CDT Gender Identity Not on file Sexual Orientation Not on file Last Filed Vital Signs Vital Sign Reading Time Taken Comments Blood Pressure 143/103 08/13/2023 3:14 PM TRIGONOMETRY TUTOR Pulse 78 08/13/2023 3:13 PM TRIGONOMETRY TUTOR Temperature 37 C (98.6 F) 08/13/2023 3:13 PM TRIGONOMETRY TUTOR Respiratory Rate 10 08/13/2023 3:13 PM TRIGONOMETRY TUTOR Oxygen Saturation 98% 08/13/2023 3:13 PM TRIGONOMETRY TUTOR Inhaled Oxygen Concentration - - Weight 72.1 kg (159 lb) 08/13/2023 3:13 PM TRIGONOMETRY TUTOR Height 162.6 cm (5' 4) 08/13/2023 3:13 PM TRIGONOMETRY TUTOR Body Mass Index 27.29 08/13/2023 3:13 PM TRIGONOMETRY TUTOR Plan of Treatment Health Maintenance Due Date Last Done Comments HPV VACCINES (1 - 3-dose series) 2015 DTAP/TDAP/TD VACCINES (1 - Tdap) 2019 HEPATITIS B VACCINES (1 of 3 - 19+ 3-dose series) 05/06 CERVICAL CANCER SCREENING 2021 HPV/Cotest (21-29) 2021 PAP SMEAR 2021 INFLUENZA VACCINE (#1) 2025 Insurance [employer] CHOICE POS II Care Teams Reptile Keeper Relationship Specialty Start Date End Date Eusebio Whitt MD [address] [place] [id number] PCP - General Family Practice 08/13/23
--- OUTSIDE RECORDS SUMMARY | 2025-04-29 12:55 | XMS_ITS | Clinical Summary ---
Author Organization [facility] Address [address] [place] [address] Care Team Providers Care Body Liner Name Role Phone Nataliia Whitman MD Primary Care Provider [phone] Source Comments [facility],non-owned Affiliates and Associated Physician Practices is amultiple site organization consisting of ambulatory clinics and hospital sitesin [place], [place], [place] and [place]. This disclosure is being madepursuant to the Care Everywhere program and may not contain all information available regarding this patient. Last updated 18.[facility] Allergies No known active allergies Medications * Be aware that medications may not be up to date on this document. Alwaysverify current medications with the patient. drospirenone-et hinyl estradiol (CARLITA) 3-0.02 MG tablet Take 1 tablet by mouth once daily Active escitalopram (Lexapro) 10 MG tablet 08/30/2024 Active busPIRone (Buspar) 5 MG tablet 5 MG ORALLY TWICE A DAY NEEDED FOR ANXIETY 08/02/2023 Active ondansetron (Zofran) 4 MG tabletIndicatio ns:Nausea Take 1 (one) tablet by mouth every 6 hours as needed for Nausea/Vomit ing 15 tablet 12/02/2024 Active Active Problems Problem Noted Date Diagnosed Date Anxiety 01/25/2021 Chronic RLQ pain 07/21/2020 Migraine 07/21/2020 Social History Tobacco Use Types Packs/Day Years Used Date Smoking Tobacco: Never Smokeless Tobacco: Never Tobacco Cessation:Counseling Given: Not Answered PHQ-2 Answer Date Recorded Patient Health Questionnaire-2 Score 0 12/02/2024 Comments No Sex and Gender Information Value Date Recorded Sex Assigned at Not on file 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 Gender Identity Not on file Sexual Orientation Not on file Last Filed Vital Signs Vital Sign Reading Time Taken Comments Blood Pressure 134/81 12/02/2024 2:37 PM CDT Pulse 79 12/02/2024 2:37 PM CDT Temperature 37.3 C (99.1 F) 12/02/2024 2:37 PM CDT Respiratory Rate 12 12/02/2024 2:37 PM CDT Oxygen Saturation 99% 12/02/2024 2:37 PM CDT Inhaled Oxygen Concentration - - Weight 72.6 kg (160 lb) 12/02/2024 2:37 PM CDT Height 162.6 cm (5' 4) 12/02/2024 2:37 PM CDT Body Mass Index 27.46 12/02/2024 2:37 PM CDT Plan of Treatment Health Maintenance Due Date Last Done Comments HIV SCREENING 2015 HPV VACCINE (1 - 3-dose series) 2015 CHLAMYDIA/GONORRHEA SCREENING 2016 HEPATITIS C SCREENING 05/19/2018 DTAP/TDAP/TD VACCINES (1 - Tdap) 2019 HEPATITIS B VACCINE (1 of 3 - 19+ 3-dose series) 2019 PAP SMEAR 2021 COVID-19 VACCINE (1 - 2023-2 5 season) 2025 INFLUENZA VACCINE (#1) 2025 ZOSTER VACCINE (1 of 2) 2050 DEPRESSION SCREENING Completed 12/02/2024 HIB VACCINE Aged Out No longer eligi ble based on patient's age to complete this topic MENINGOCOCCAL (Group B) VACC INE SHARED DECISION-MAKING Aged Out No longer eligibl e based on patient's age to complete this topic MENINGOCOCCAL GROUPS A/C/Y/W VACCINE Aged Out No longer eligible b ased on patient's age to complete this topic PNEUMOCOCCAL VACCINE Aged Out No long er eligible based on patient's age to complete this topic Insurance [facility] Care Teams Body Liner Relationship Specialty Start Date End Date Nataliia Whitman MD [address] [place] [address] PCP - General Pediatrics 09/17/15
--- OUTSIDE RECORDS SUMMARY | 2025-04-29 12:55 | XMS_ITS | Clinical Summary ---
Author Organization [facility] Address [address] [place] [address] Care Team Providers Care Supervisor Car Installations Name Role Phone Eusebio Whitt MD Primary Care Provider Allergies No known active allergies Medications spironolactone (ALDACTONE) 25 mg tablet Take by mouth Active budesonide (PULMICORT) 0.25 mg/2 mL nebulizer solution USE 0.25 MG (2 ML) VIA IRRIGATION EVERY 12 HOURS 3 Active Slynd tablet tablet 3 Active busPIRone (BUSPAR) 5 mg tablet 5 MG ORALLY TWICE A DAY NEEDED FOR ANXIETY 3 Active escitalopram (LEXAPRO) 10 mg tablet 5 Active omeprazole (PriLOSEC) 20 mg capsuleIndications :Treatment of Non-Bleeding Gastric Disorder Take 1 capsule (20 mg total) by mouth daily 30 capsule 5 Active ondansetron ODT (ZOFRAN-ODT) 4 mg disintegrating tablet Take 1 tablet (4 mg total) by mouth every 8 (eight) hours as needed for nausea or vomiting 20 tablet 5 Active Active Problems Problem Noted Date Diagnosed Date Upper respiratory tract infection 09/02/2024 Assessment & Plan (09/02/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 Throat culture pending Rapid covid, flu A/B negative. PCR pending Symptom duration 3 days Likely viral URI Throat culture pending Supportive care, rest, hydration Tylenol for aches, pains. Take per package directions Antihistamines like Claritin or Zyrtec as needed for drainage. Take per package directions Delsym (cough suppressant) and Mucinex (cough expectorant) as needed for coughing. Follow package directions Daqyuil or sudafed for congestion, no more than 7 days. Do NOT take with high blood pressure, , Frequent cough drops and lozenges Increase sugar free fluids, especially decaffeinated ones Sleep with head of bed raised to promote drainage Flonase or nasal saline spray, 2 sprays each nostril daily Discussed the life expectancy of a viral illness is 7 to 10 days. Avoid spreading the virus by remaining at home and away from others until you are fever-free (temperature below 100) for 24 hours. Good handwashing and covering your mouth when coughing are also important. If you are not improving or worsening in the next 5-7 days you must go to your PCP, or Urgent Care/ER to be SEEN and reevaluated. No further prescriptions or refills will be given by phone without another evaluation. If you develop a high fever 103+, neck stiffness, trouble breathing, chest pain, or other life threatening symptoms GO TO THE ER IMMEDIATELY. 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): Possibly viral, mild If worsening pain, pressure, can start augmentin Anxiety 01/25/2021 Migraine 07/21/2020 Chronic RLQ pain 07/21/2020 Resolved Problems Problem Noted Date Diagnosed Date Resolved Date Abnormal laboratory test 07/21/2020 Surgical History Surgery Date Site/Laterality Comments ANTERIOR CRUCIATE LIGAMENT REPAIR WISDOM TOOTH EXTRACTION Medical History Medical History Date Comments Hx Other Medical 2016 Right knee arth roscopy ACL reconstruction; Comments: APO 12/06/2015 - Migraines Acne Depression Family History Medical History Relation Name Comments Hypertension Father Lupus Father anxiety Mother depression Mother migraine Mother Arthritis Other 1 Family history of arthritis; Other Other 2 Family history of heart problem; Other Other 3 Family history of htn; Other Other 4 Family history of lupus; Relation Name Status Comments Father Mother Other 1 Other 2 Other 3 Other 4 Social History Tobacco Use Types Packs/Day Years Used Date Smoking Tobacco: Never Tobacco Cessation:Counseling Given: Not Answered Alcohol Use Standard Drinks/Week Comments Never 0 (1 standard drink = 0.6 oz pur e alcohol) AUDIT-C Answer Date Recorded Q1: How often do you have a drink containing alc ohol? Never 07/21/2020 Average Number of Drinks Not on file 020 Frequency of Binge Drinking Not on file 07/06 Personal Safety Answer Date Recorded Have you ever been in or are you currently in a harmful physical or emotional relationship or is someone making you feel afraid or unsafe? 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 Gender Identity Not on file Sexual Orientation Not on file Obstetrics History Last Filed Vital Signs Vital Sign Reading Time Taken Comments Blood Pressure 124/63 12/03/2024 6:25 PM CDT Pulse 84 12/03/2024 6:25 PM CDT Temperature 36.6 C (97.8 F) 12/03/2024 12:07 PM CDT Respiratory Rate 18 12/03/2024 6:25 PM CDT Oxygen Saturation 99% 12/03/2024 6:25 PM CDT Inhaled Oxygen Concentration - - Weight 72.6 kg (160 lb) 12/03/2024 12:07 PM CDT Height 162.6 cm (5' 4) 12/03/2024 12:07 PM CDT Body Mass Index 27.46 12/03/2024 12:07 PM CDT Plan of Treatment Health Maintenance Due Date Last Done Comments Cervical Cancer Screening 2000 Depression Screening 2000 Hepatitis C Screening 2000 HPV Vaccines (2 - 3-dose series) 07/13/2016 06/15/20 16 Regular Well Visit/Exam 18-64 2018 DTaP/Tdap/Td Vaccine (7 - Td or Tdap) 11/21/2021 11/22/2011, 02/12/2006, 2002, Additional history exists Influenza Vaccine (#1) 2025 Hepatitis B Screening Completed 2000 , 2000, 2000 Pneumococcal vaccine <65 Completed 002, 2000, 2000, Additional history exists Varicella Vaccines Completed 04/13/2015, 05/29/2001 Insurance [facility] Address: [address] [address] [place] [address] [employer] [facility] [employer] [facility] [employer]/PPO Address: [facility] [id number] [place] [id number] Care Teams Supervisor Car Installations Relationship Specialty Start Date End Date Eusebio Whitt MD [address] [facility] [address] [place] [address] PCP - General Family Practice 07/14/23
== END 2025-04-29 12:48 | disposition home or self-care (01) ==
PROVIDERS: PCP Family Medicine; Visit Provider Otolaryngology
DX: R59.0 Localized enlarged lymph nodes (principal)
CPT/HCPCS: 76536; 76882